=== PATIENT | female | born 1965 ===

== ENCOUNTER 2017-09-10 05:56 | Emergency (ER) | payer BC ==
[~2017-09-10] VITALS: Ht 165.1 cm; Wt 58.0 kg
[2017-09-10 06:17] VITALS: Ht 165.1 cm; Wt 58.0 kg
[2017-09-10] MEDS ORDERED: SOD CHLORIDE 0.9% 500 ML IV STA (06:54)
[2017-09-10] MEDS ORDERED: LORAZEPAM 2 MG INJ IV ONE (07:00)
[2017-09-10] MEDS ORDERED: MECLIZINE 12.5 MG TAB PO ONE (07:00)
--- NOTE | 2017-09-10 07:19 | ERD ---
ER Documentation Chief Complaint Chief Complaint c/o dizziness x 2 days. (+) nausea and vomiting. HPI This is a very pleasant 51-year-old female who presents to the emergency room with complaint of vertigo. She describes a room spinning sensation when she opens her eyes or moves her head from side to side. This has been occurring on and off and intermittently over the past 3 weeks. She states that she was diagnosed with vertigo 3 weeks ago but not given any medication. She has been taking [id number] Dramamine without significant improvement. She denies any slurred speech ataxia or clumsiness of her hands. She denies any chest pain or shortness of breath, no nausea or vomiting until today when she had 1 to episodes of nonbloody nonbilious emesis associated with the dizziness. ROS All systems reviewed and are negative except as per history of present illness. Medications Home Meds Active Scripts Meclizine Hcl* (Antivert*) 12.5 Mg Tab, 12.5 MG PO Q6H Y for DIZZINESS, #20 TAB Prov:SUDHEER FAM MD 09/10/17 Reported Medications Ergocalciferol (Vitamin D2) (VITAMIN D2) 2,000 Unit Tablet, 2000 UNIT PO DAILY, TAB 09/10/17 Allergies Allergies: Coded Allergies: No Known Allergy (Unverified , 09/10/17) FmHx Family History: No diabetes Physical Exam Vitals Vital Signs Date Time Temp Pulse Resp B/P Pulse Ox O2 Delivery O2 Flow Rate FiO2 09/10/17 09:55 85 23 121/61 100 Room Air 09/10/17 08:35 76 18 126/58 100 09/10/17 06:17 97.9 71 18 124/59 100 Physical Exam General: Well developed, well nourished, no acute distress Head: Normocephalic, atraumatic. Eyes: Pupils equally reactive, EOM intact ENT: Moist mucous membranes Neck: Supple, no lymphadenopathy Respiratory: Lungs clear bilaterally, no distress Cardiovascular: RRR, no murmurs, rubs, or gallops Abdominal: Soft, non-tender, non-distended, no peritoneal signs : Deferred MSK: No edema, no unilateral swelling, 5/5 strength Neurologic: Alert and oriented, moving all extremities, normal speech, no focal weakness, no cerebellar signs are normal rapid alternating movements, reproducible horizontal nystagmus with eye opening and head movement. Skin: No rash Psych: Normal mood Result Diagram: 09/10/17 0712 09/10/17 0712 Results 24 hrs Laboratory Tests Test 09/10/17 07:12 09/10/17 08:46 White Blood Count 15.110^3/ul Red Blood Count 4.2810^6/ul Hemoglobin 11.5g/dl Hematocrit 35.6% Mean Corpuscular Volume 83.2fl Mean Corpuscular Hemoglobin 26.9pg Mean Corpuscular Hemoglobin Concent 32.3g/dl Red Cell Distribution Width 16.8% Platelet Count 74938^3/UL Mean Platelet Volume 10.3fl Neutrophils % 85.6% Lymphocytes % 8.6% Monocytes % 4.9% Eosinophils % 0.1% Basophils % 0.3% Nucleated Red Blood Cells % 0.0/100WBC Neutrophils # 12.910^3/ul Lymphocytes # 1.310^3/ul Monocytes # 0.710^3/ul Eosinophils # 0.010^3/ul Basophils # 0.010^3/ul Nucleated Red Blood Cells # 0.010^3/ul Sodium Level 147mmol/L Potassium Level 3.3mmol/L Chloride Level 108mmol/L Carbon Dioxide Level 22mmol/L Anion Gap 20 Blood Urea Nitrogen 8mg/dl Creatinine 0.69mg/dl Glucose Level 119mg/dl Calcium Level 9.1mg/dl Troponin I < 0.012ng/ml Serum HCG, Qualitative NEGATIVE Urine Color STRAW Urine Clarity CLEAR Urine pH 8.0 Urine Specific [place] 1.003 Urine Ketones NEGATIVEmg/dL Urine Nitrite NEGATIVEmg/dL Urine Bilirubin NEGATIVEmg/dL Urine Urobilinogen NEGATIVEmg/dL Urine Leukocyte Esterase NEGATIVELeu/ul Urine Microscopic RBC 11/HPF Urine Microscopic WBC 0/HPF Urine Hemoglobin 2+mg/dL Urine Glucose NEGATIVEmg/dL Urine Total Protein NEGATIVEmg/dl Current Medications Medications (Trade) Dose Ordered Sig/Hilario Route PRN Reason Start Time Stop Time Status Last Admin Dose Admin Sodium Chloride (NS) 500 ml @ 500 mls/hr Q1H STAT IV 09/10/17 06:54 09/10/17 07:53 DC 09/10/17 07:12 Lorazepam (Ativan) 0.5 mg ONCE ONCE IV 09/10/17 07:00 10/24/17 07:01 DC 09/10/17 07:12 Meclizine HCl (Antivert) 25 mg ONCE ONCE PO 09/10/17 07:00 09/10/17 07:01 DC 09/10/17 07:13 Procedures/MDM EKG, MONITORS, & DIAGNOSTIC IMAGING: CT brain: IMPRESSION: 1. No evidence of acute intracranial pathology. 2. Age-related volume loss and small vessel ischemic changes. EKG: I reviewed and interpreted a 12-lead EKG. Rhythm: Normal sinus rhythm Ectopy: None Intervals: No abnormalities ST segments: No elevations or depressions T waves: No contiguous inversions Chest x-ray: I reviewed and interpreted a 1 view of the chest Mediastinum: No enlargement Cardiac silhouette: No cardiomegaly Airspace: Clear lung hu bilaterally without evidence of pneumothorax Bones: No evidence of fracture LAB INTERPRETATION: Nonspecific leukocytosis likely secondary to vomiting and stress response, normal electrolytes, no UTI MEDICAL DECISION MAKING: The patient presents with vertigo. She is describing what appears to be consistent with peripheral vertigo. It is sudden in onset and reproducible. It is been on and off for approximately 3 weeks however the patient has not had appropriate treatment. The patient is not taking meclizine. The patient also states that she did not have a CT brain during the initial diagnosis. She does not exhibit any alternative signs or symptoms concerning for cerebellar process. She has normal rapid alternating movements, no dysmetria and no ataxia. While her symptoms have been present for 3 weeks they have been intermittent and again are very reproducible. I am not concerned that this is related to a central process such as a stroke. However, given her age there is a small risk for this. I will reach out to her primary care physician to arrange for outpatient MRI imaging as I do not feel that she necessarily requires inpatient hospitalization at this time. ER COURSE: Patient was given gentle fluids, small dose of Ativan and meclizine. The patient has complete resolution of symptoms. She does have slight leukocytosis but this is likely secondary to stress response, no fever, no evidence of pneumonia or UTI. I was able to speak to the patient's primary care physician Dr. Parker, we discussed the patient's presentation and case. He feels very comfortable following up with the patient and arranging outpatient MRI. At this point the patient is safe for discharge. We did discuss return precautions including worsening symptoms or other neurologic symptoms. I kept the patient and/or family informed of laboratory and diagnostic imaging results throughout the emergency room course. DISPOSITION PLAN: We discussed follow up with the patient's primary care doctor within 24 to 48 hours as needed. We also discussed return to the emergency room for worsening symptoms or worsening condition. Outpatient referral: [None required] Discharge Medications: Meclizine Departure Diagnosis: Primary Impression: Peripheral vertigo Laterality: unspecified laterality Qualified Code: H81.399 - Peripheral vertigo, unspecified laterality Additional Impression: Leukocytosis Leukocytosis type: unspecified Qualified Code: D72.829 - Leukocytosis, unspecified type Condition: Stable SUDHEER FAM MD Sep 10, 2017 07:19
[2017-09-10 07:23] LABS: BASOPHILS % 0.3 % (0.0-2.0); EOSINOPHILS % 0.1 % (0.0-7.0); HEMATOCRIT 35.6 % (37.0-47.0); HEMOGLOBIN 11.5 g/dl (12.0-16.0); LYMPHOCYTES # 1.3 10^3/ul (0.8-2.9); LYMPHOCYTES % 8.6 % (15.0-51.0); MEAN CORPUSCULAR HEMOGLOBIN 26.9 pg (29.0-33.0); MEAN CORPUSCULAR HGB CONC 32.3 g/dl (32.0-37.0); MEAN CORPUSCULAR VOLUME 83.2 fl (82.0-101.0); MEAN PLATELET VOLUME 10.3 fl (7.4-10.4); MONOCYTE # 0.7 10^3/ul (0.3-0.9); MONOCYTES % 4.9 % (0.0-11.0); NEUTROPHIL # 12.9 10^3/ul (1.6-7.5); NEUTROPHILS % 85.6 % (39.0-77.0); PLATELET COUNT 275 10^3/UL (140-415); RED BLOOD COUNT 4.28 10^6/ul (4.20-5.40); RED CELL DISTRIBUTION WIDTH 16.8 % (11.5-14.5); WHITE BLOOD COUNT 15.1 10^3/ul (4.8-10.8)
[2017-09-10 07:41] LABS: ANION GAP 20 (8-16); BLOOD UREA NITROGEN 8 mg/dl (7-20); CALCIUM 9.1 mg/dl (8.4-10.2); CARBON DIOXIDE 22 mmol/L (21-31); CHLORIDE 108 mmol/L (97-110); CREATININE 0.69 mg/dl (0.44-1.00); GLUCOSE 119 mg/dl (70-220); POTASSIUM 3.3 mmol/L (3.5-5.1); SODIUM 147 mmol/L (135-144)
--- NOTE | 2017-09-10 07:46 | RADRPT ---
PROCEDURE: CT Brain without contrast. CLINICAL INDICATION: 40 ml. TECHNIQUE: A CT of the brain was performed on a multidetector CT scanner utilizing axial sections from the skull base through the vertex without contrast. Images were reviewed on a high-resolution [employer] workstation. Exam CTDI = 44.88 mGy and the DLP = 630.2 mGy-cm. One or the following dose reduction techniques were used: -Automated exposure control. -Adjustment of the mA and/or KV according to patient's size. -Use of iterative reconstruction technique COMPARISON: None available FINDINGS: Mild diffuse cerebral and cerebellar atrophy is present. There is proportionate dilatation of the v entricular system and sulci in a symmetric fashion. There is prominence of the extraaxial spaces sec ondary to atrophy. There is no evidence of intracranial hemorrhage, mass effect or midline shift. N o abnormal intra-axial or extra-axial fluid collections are seen. The density of the brain is tito l and the david/white matter differentiation is well preserved. Mild patchy diffuse deep white matte r microangiopathic ischemic change is seen. The osseous structures and visualized paranasal sinuses are unremarkable. IMPRESSION: 1. No evidence of acute intracranial pathology. 2. Age-related volume loss and small vessel ischemic changes. RPTAT: [facility] Physician Oliverio Date Time Electronically viewed and signed by Physician Oliverio on 09/10/2017 07:46 GREGORIO/
[2017-09-10 07:54] LABS: TROPONIN-I < 0.012 ng/ml (0.00-0.12)
[2017-09-10] MEDS ORDERED: ERGO2000 PO (09:07)
--- NOTE | 2017-09-10 09:19 | RADRPT ---
PROCEDURE: XR Chest. CLINICAL INDICATION: Shortness of breath . Weakness TECHNIQUE: Single frontal chest x-ray. COMPARISON: None. FINDINGS: The lungs are clear of acute infiltrates, edema, effusions, or masses.. The cardiomediastinal silho uette is unremarkable. The osseous structures are intact. IMPRESSION: No acute cardiopulmonary disease. RPTAT: GG .Phan Bains MD, MD Date Time Electronically viewed and signed by .Phan Bains MD, on 09/10/2017 09:19 .L/
[2017-09-10 09:41] LABS: ADD UMIC YES; UR ASCORBIC ACID NEGATIVE (NEGATIVE); UR BILIRUBIN (Dip) NEGATIVE (NEGATIVE); UR BLOOD (Dip) 2+ mg/dL (NEGATIVE); UR CLARITY CLEAR (CLEAR); UR COLOR STRAW (YELLOW); UR GLUCOSE (Dip) NEGATIVE (NEGATIVE); UR KETONES (Dip) NEGATIVE (NEGATIVE); UR LEUKOCYTE ESTERASE (Dip) NEGATIVE Leu/ul (NEGATIVE); UR NITRITE (Dip) NEGATIVE (NEGATIVE); UR RBC 11 /HPF (0-5); UR SPECIFIC GRAVITY (Dip) 1.003 (1.003-1.030); UR TOTAL PROTEIN (Dip) NEGATIVE (NEGATIVE); UR UROBILINOGEN (Dip) NEGATIVE (NEGATIVE)
[2017-09-10] MEDS ORDERED: MECL12.574 PO (09:49)
[2017-09-10 09:55] VITALS: BP 121/61; PULSE 85; RESP 23
== END 2017-09-10 10:17 | disposition home or self-care (01) ==
LOC: E/R 05:56
DX: H81.399 Other peripheral vertigo, unspecified ear (principal); D72.829 Elevated white blood cell count, unspecified; R40.2252 Coma scale, best verbal response, oriented, at arrival to emergency department; R40.2142 Coma scale, eyes open, spontaneous, at arrival to emergency department; R40.2362 Coma scale, best motor response, obeys commands, at arrival to emergency department
CPT/HCPCS: 36415; 70450; 71010; 80048; 81001; 84484; 84703; 85025; 93005; 96374; 99285; J2060; J7040